=== PATIENT | female | born 1975 | race Caucasian/White ===

== ENCOUNTER 2020-07-03 15:58 | Emergency (ER) | payer BC, SELFPAY ==
[2020-07-03] VITALS (8 sets, daily range): BP systolic 104–133; BP diastolic 74–91; PULSE 69–97; RESP 12–26; TEMP 36.7; O2SAT 98–100
--- NOTE | ~2020-07-03 | XR_ITS ---
EXAMINATION: XR chest 1V portable DATE: 07/03/2020 16:31 INDICATION: Left chest pain. Dizziness. Nausea and vomiting. TECHNIQUE: A single frontal view of the chest was obtained. COMPARISON: CT abdomen and pelvis 05/20/2016 FINDINGS: The chest demonstrates clear lungs without pneumonia, pleural effusion, or pneumothorax. Th e heart size is normal. IMPRESSION: 1. No acute cardiopulmonary disease. Reviewed, dictated and finalized at location A. E LEVER OPERATOR
--- NOTE | 2020-07-03 16:04 | ECG_ITS ---
Measurements Intervals [place] Rate: 83 P: 41 NC: 156 QRS: 21 QRSD: 91 T: 81 QT: 337 QTc: 398 Interpretive Statements SINUS RHYTHM BORDERLINE ST-T WAVE ABNORMALITY- INFERIOR LEADS BORDERLINE ECG Electronically Signed On 07-03-2020 16:19:56 SETTER MACHINE by Gopi Huggins D.O.
[2020-07-03 16:24] LABS: Basophils Absolute Auto 0.1 K/mm3 (0.0-0.1); Basophils Percent Auto 0.3 % (0.2-1.2); Eosinophils Absolute Auto 0.2 K/mm3 (0-0.3); Hematocrit 40.7 % (37.0-47.0); Hemoglobin 14.2 g/dL (12.0-15.0); Immature Granulocyte Absolute 0.04 K/mm3 (0.00-0.031); Immature Granulocyte Percent A 0.3 % (0-0.5); Lymphocytes Absolute Auto 3.06 K/mm3 (0.9-3.2); Lymphocytes Percent Auto 20.4 % (18.3-44.2); Mean Corpuscular HGB Conc 34.9 g/dl (32-36); Mean Corpuscular Hemoglobin 31.1 pg (26-34); Mean Corpuscular Volume 89.1 fl (80-100); Mean Platelet Volume 10.5 fl (7.4-10.4); Monocytes Absolute Auto 0.6 K/mm3 (0.1-0.6); Monocytes Percent Auto 4.1 % (2.6-8.5); Neutrophils Absolute Auto 11.1 K/mm3 (1.3-6.7); Neutrophils Percent Auto 73.9 % (45.5-73.1); Platelet Count Result 290 k/mm3 (150-375); Red Blood Count 4.57 M/mm3 (4.2-5.4); Red Cell Distribution Width 11.7 % (11.5-14.5)
[2020-07-03 16:31] LABS: Alanine Aminotransferase 47 U/L (4-35); Albumin Level 4.4 g/dL (3.5-5.1); Alkaline Phosphatase 69 U/L (38-126); Anion Gap 7 mmol/L (8-16); Aspartate Amino Transferase 34 U/L (14-36); Bilirubin,Total 0.4 mg/dL (0.2-1.3); Blood Urea Nitrogen 12 mg/dL (7-17); Calcium 8.9 mg/dL (8.4-10.2); Carbon Dioxide 26 mmol/L (22-30); Chloride 105 mmol/L (98-107); Estimated CRCL calculation 106 ml/min; Estimated Glomerular Filt Rate > 60; Glucose 108 mg/dL (65-105); Lipase 54 U/L (23-300); Potassium 4.1 mmol/L (3.4-5.0); Sodium 138 mmol/L (137-145)
[2020-07-03 16:34] LABS: INR 0.9; Partial Thromboplastin Time 25.3 SECONDS (22.3-36.8); Prothrombin Time 13.2 Seconds (11.1-14.7)
[2020-07-03 16:43] LABS: NT Pro B Type Natriuretic Pept < 11 PG/ML (5-100); Troponin I < 0.012 ng/mL (0.000-0.034)
--- NOTE | 2020-07-03 16:44 | ED.CHESTPAIN ---
HPI - Chest Pain General Chief Complaint: Chest Pain Stated Complaint: cp Time Seen by Provider: 07/03/20 16:04 Source: patient, family, EMS, RN notes reviewed and other Mode of arrival: ambulatory Limitations: no limitations History of Present Illness HPI narrative: Patient is a 44-year-old female who presents to emergency department for evaluation of left-sided substernal chest pain began this morning around 730 subsided came back around 1:00 followed by multiple episodes of emesis patient went to urgent care was evaluated and referred to emergency department on arrival patient notes mild improvement with her nitroglycerin and aspirin given by EMS noting mild discomfort to the left chest with slight GI upset patient notes over the last couple of days she is felt foggy with mild left-sided chest pain 2 days ago that was self-limited and resolved Related Data Home Medications Medication Instructions Recorded Confirmed elderberry fruit [Elderberry] mg PO 07/03/20 metformin 500 mg PO DAILY 07/03/20 naltrexone 50 mg PO DAILY 07/03/20 paroxetine HCl 10 mg PO QAM 07/03/20 spironolactone 25 mg PO DAILY 07/03/20 Allergies Allergy/AdvReac Type Severity Reaction Status Date / Time No Known Allergies Allergy Unverified 05/20/16 15:15 Review of Systems Review of Systems: All systems reviewed & are unremarkable except as noted in HPI and below PMFSH Past Medical History Medical History (Updated 07/03/20 @ 19:32 by Julian Ornelas PA-C) Obesity Social History Social History (Updated 07/03/20 @ 16:45 by Julian Ornelas PA-C) Smoking status: Never smoker Gender identity (if verbalized by the patient): Female Exam Narrative: Exam Narrative: GENERAL: Well-appearing, well-nourished, and in no acute distress. HEAD: Normocephalic, atraumatic. EYES: PERRLA and EOMI. ENT: Nares clear, no rhinorrhea or epistaxis. Mucous membranes moist. CHEST: Clear to auscultation. No respiratory distress. No wheezes rales or rhonchi HEART: Regular rate and rhythm. No murmur heard. Normal peripheral pulses. ABDOMEN: Soft, mild discomfort in the upper quadrants of the abdomen, nondistended EXTREMITIES: Normal range of motion. No edema. SKIN: Warm, dry, no rash. NEURO: No focal deficits. Alert and oriented x3. PSYCH: Normal mood and affect. Course Course Emergency Course: Patient in the room in no distress with improvement with medications felt to be safe for discharge home with plan to follow-up with primary care will be sent on PPI Vital Signs Vital signs: Vital Signs Temperature 98.1 F 07/03/20 16:00 Pulse Rate 97 07/03/20 16:00 Respiratory Rate 26 H 07/03/20 16:00 Blood Pressure 133/88 07/03/20 16:00 Pulse Oximetry 99 07/03/20 16:00 Temperature 98.1 F 07/03/20 17:38 Pulse Rate 69 07/03/20 18:45 Respiratory Rate 17 07/03/20 18:45 Blood Pressure 104/74 07/03/20 18:45 Pulse Oximetry 99 07/03/20 18:45 MDM - Chest Pain MDM Narrative Medical decision making narrative: Patients EKGs and labs are without significant high risk changes. Cardiac risk factors were reviewed. Patient is felt likely to be low risk for ACS and reasonable for further risk stratification testing as an outpatient. Pain was not sudden or maximal in onset without tearing or ripping. quality. No other signs or symptoms to suggest aortic dissection. A low-risk Wells criteria is noted. PE is felt to be unlikely. No pneumonia or URI symptoms were seen on evaluation today. Patient is felt to be reasonable for continued evaluation as an outpatient. Lab Data Result diagrams: 07/03/20 16:12 07/03/20 16:12 Labs: Lab Results 07/03/20 07/03/20 07/03/20 Range/Units 16:12 16:12 16:12 WBC 15.0 H (4.5-10.0) K/mm3 RBC 4.57 (4.2-5.4) M/mm3 Hgb 14.2 (12.0-15.0) g/dL Hct 40.7 (37.0-47.0) % MCV 89.1 (80-100) fl MCH 31.1 (26-34) pg MCHC 34.9 (32-36) g/dl RDW 11.7
[2020-07-03 16:48] LABS: D Dimer 0.27 ug/mL (<0.48)
[2020-07-03] MEDS: PANTOPRAZOLE SODIUM IV 40 MG VIAL IV PUSH (17:07)
[2020-07-03] MEDS: MAG HYDROX/AL HYDROX/SIMETH 30 ML UDC PO (17:07)
[2020-07-03] MEDS: LIDOCAINE HCL 2% VISC SOLN 15 ML UDC 20 ML PO (17:07)
[2020-07-03] MEDS: SODIUM CHLORIDE 0.9% IV 1,000 ML 999 ML IV CONT (17:08)
[2020-07-03 17:47] LABS: Amphetamine Screen Urine Negative (Negative); Barbiturate Screen Urine Negative (Negative); Benzodiazepines Screen Urine Negative (Negative); Cannabinoid Screen Urine Negative (Negative); Cocaine Screen Urine Negative (Negative); Methadone Screen Urine Negative (Negative); Opiate Screen Urine Negative (Negative); Phencyclidine Screen Urine Negative (Negative)
[2020-07-03 17:54] LABS: Add Urine Microscopic? YES; Appearance Urine Clear (Clear); Bacteria Urine Trace /hpf; Bilirubin Urine Negative (Negative); Blood Urine Negative (Negative); Color Urine Yellow (Yellow); Glucose Urine UA Negative (Negative); Ketones Urine Negative (Negative); Leukocyte Esterase Ur Negative LEU/UL (Negative); Mucus Urine Rare /lpf; Nitrate Urine Negative (Negative); Protein Urine 1+ mg/dL (Negative); RBC Urine 0-2 /hpf (0-2); Specific Grav Ur 1.018 (1.001-1.035); Squamous Epithelial Cell Urine Occasional /hpf (Few); Urobilinogen Urine Negative mg/dL (<2.0); WBC Urine 0-3 /hpf
--- NOTE | 2020-07-03 19:10 | PC.NURSE ---
assuming car of pt at this time, received report from artur banks
[2020-07-03 19:24] LABS: Troponin I < 0.012 ng/mL (0.000-0.034)
== END 2020-07-03 19:46 | disposition home or self-care (01) ==
PROVIDERS: Emergency Medicine Emergency Medical Services; Emergency Provider Emergency Medicine
DX: R07.2 Precordial pain (principal); E66.9 Obesity, unspecified; Z68.39 Body mass index [BMI] 39.0-39.9, adult; R94.31 Abnormal electrocardiogram [ECG] [EKG]
CPT/HCPCS: 36415; 71045; 80053; 80307; 81001; 81025; 83690; 83880; 84484; 85025; 85380; 85610; 85730; 93005; 96365; 96375; 99284; A9270; C9113; J0131; J7030

== ENCOUNTER → 2021-03-22 16:59 | Outpatient (CLI) | payer BC, SELFPAY ==
--- NOTE | ~2021-03-22 | MM_ITS ---
EXAMINATION: MM screening suman BI w chhaya HISTORY: Screening mammogram; baseline examination TECHNIQUE: Craniocaudal and mediolateral oblique 3-D tomosynthesis images were obtained and synthetic 2-D images were generated. CAD analysis was submitted and interpreted. COMPARISON: No prior mammogram is available for comparison at this institution. BREAST PARENCHYMAL COMPOSITION: There are scattered areas of fibroglandular density. FINDINGS: There is no evidence of suspicious mass, calcification, or architectural distortion to sugg est malignancy in either breast. There has been no suspicious interval change. IMPRESSION: 1. No mammographic evidence of malignancy. 2. Recommend routine screening mammography in one year. BI-RADS Category 1: Negative Reviewed, dictated and finalized at location A.
== END ==
PROVIDERS: PCP Family Medicine; Visit Provider Nurse Practitioner Family
DX: Z12.31 Encounter for screening mammogram for malignant neoplasm of breast (principal)
CPT/HCPCS: 77063; 77067

== ENCOUNTER → 2021-06-24 14:20 | Outpatient (CLI) | payer BC, SELFPAY ==
[2021-06-24 17:33] LABS: SARS-CoV-2 RNA PCR Negative
== END ==
PROVIDERS: PCP Family Medicine; Visit Provider Nurse Practitioner Family
DX: R68.89 Other general symptoms and signs (principal); Z20.822 Contact with and (suspected) exposure to COVID-19
CPT/HCPCS: C9803; U0003; U0005

== ENCOUNTER 2021-11-02 12:41 | Emergency (ER) | payer BC, SELFPAY ==
[2021-11-02] VITALS (24 sets, daily range): BP systolic 104–129; BP diastolic 63–92; PULSE 82–90; RESP 16–18; TEMP 36.3–36.4; O2SAT 97–100
--- NOTE | ~2021-11-02 | CT_ITS ---
EXAMINATION: CT abdomen pelvis w con DATE: 11/02/2021 18:38 INDICATION: Right-sided abdominal pain TECHNIQUE: Computed tomography (CT) of the abdomen and pelvis was performed with 109 mL Omnipaque-350 intravenous contrast. Automated exposure control and iterative reconstruction technique were employe d. The dose-length product was 1142.36 mGy-cm. COMPARISON: 05/20/2016 FINDINGS: Lung bases are clear. Heart size is normal. No pericardial or pleural effusion. Liver, gallbladder, s pleen, pancreas, bilateral adrenal glands and kidneys are normal. Bowels including the appendix are n ormal. 3.6 cm right adnexal cyst. Anteverted uterus, left adnexa and partially decompressed bladder a re unremarkable. No free intraperitoneal gas or fluid. No pathologically enlarged abdominal or pelvic lymphadenopathy. Small fat-containing umbilical hernia. L5 spondylolysis with bilateral pars interar ticularis defects and 4 mm anterolisthesis on S1. IMPRESSION: 1. 3.6 cm right adnexal cyst. 2. Small fat-containing umbilical hernia. 3. L5 spondylolysis with 4 mm anterolisthesis on S1. Reviewed, dictated and finalized at location A. GAGE COORDINATOR
--- NOTE | ~2021-11-02 | US_ITS ---
EXAMINATION: US pelvic complete w TV DATE: 11/02/2021 20:48 INDICATION: Right adnexal mass TECHNIQUE: Multiple transabdominal and endovaginal sonographic images of the pelvis were obtained. COMPARISON: None. FINDINGS: The uterus measures 9.1 x 6.0 x 4.5 cm. The endometrial complex measures 3 mm in thickness. Uterine myometrium appears thickened with indistinct endometrial-myometrial junctional zone and is scattered small hyperechoic islands consistent with diffuse uterine adenomyosis. section scar at the a nterior lower uterine segment. The right ovary measures 4.5 x 3.0 x 3.0 cm. 4.1 x 2.7 x 3.1 cm anecho ic cyst in the right ovary with single thin linear internal septation. No thickened septations or nod ular soft tissue component to suggest neoplasm. The left ovary measures 2.5 x 2.0 x 1.7 cm. -Or full identified in both ovaries on color Doppler. There is no free fluid in the pelvis. IMPRESSION: 1. Diffuse uterine adenomyosis. 2. 4.1 cm right ovarian cyst with single thin internal septation. Reviewed, dictated and finalized at location A. OPERATOR
--- NOTE | 2021-11-02 17:27 | ED.NAVMDI ---
HPI - Nausea/Vomiting/Diarrhea General Chief complaint: Nausea/Vomiting/Diarrhea Stated complaint: nausea/vomiting/diarrhea Time Seen by Provider: 11/02/21 17:18 Source: patient Mode of arrival: ambulatory Limitations: no limitations History of Present Illness HPI Narrative: 45-year-old female presents today with complaints of nausea, vomiting, and diarrhea for the last 2 days. Patient took a home Covid test today and it was negative. Patient also noted right flank/right side pain that started yesterday. Patient unsure of fevers but does admit to chills and night sweats. 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 Patient denies dysuria, urinary frequency, but does admit to not being able to urinate. Patient states she has been able to keep some foods down today and fluids down today. Patient pain currently tolerable. Related Data Home Medications Medication Instructions Recorded Confirmed metformin 1,000 mg PO DIRECTED 07/03/20 07/19/21 naltrexone 50 mg PO DAILY 07/03/20 07/19/21 paroxetine HCl 10 mg PO QAM 07/03/20 07/19/21 spironolactone 25 mg PO DAILY 07/03/20 07/19/21 bupropion HCl 150 mg tablet,12 hr 150 mg PO BID 12/10/20 07/19/21 sustained-release sitagliptin 100 mg tablet 100 mg PO EVERY OTHER DAY 12/10/20 07/19/21 topiramate 25 mg tablet 25 mg PO BID 12/10/20 07/19/21 Vitamin D3 500 PO DAILY 11/02/21 semaglutide [Ozempic] 1 mg SUBCUT WEEKLY 11/02/21 Allergies Allergy/AdvReac Type Severity Reaction Status Date / Time codeine Allergy Mild upset Verified 11/02/21 17:31 stomach Review of Systems Review of Systems: CONSTITUTIONAL: Denies fever, chills, or sweats. EYES: Denies visual changes, redness, or discharge. ENT: Denies rhinorrhea, congestion, sore throat, or otalgia. CARDIOVASCULAR: Denies chest pain, palpitations, or edema. RESPIRATORY: Denies cough or dyspnea. GASTROINTESTINAL: Positive for flank pain right sided, nausea, vomiting, and diarrhea. GENITOURINARY: Denies dysuria or hematuria. SKIN: Denies rash or itching. MUSCULOSKELETAL: Denies back pain, joint pain, or myalgia. NEUROLOGIC: Denies headache, numbness, dizziness, or weakness. PSYCHIATRIC: Denies anxiety or depression. 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 Gender identity (if verbalized by the patient): Female Exam Narrative: GENERAL: Well-appearing, well-nourished, and in no acute distress. HEAD: Normocephalic, atraumatic. EYES: PERRLA and EOMI. ENT: Nares clear, no rhinorrhea or epistaxis. Mucous membranes moist. NECK: Supple. No adenopathy or masses. No carotid bruits or JVD CHEST: Clear to auscultation. No respiratory distress. No wheezes rales or rhonchi HEART: Regular rate and rhythm. No murmur heard. Normal peripheral pulses. ABDOMEN: Soft, nontender, nondistended, normal active bowel sounds. EXTREMITIES: Normal range of motion. No edema. SKIN: Warm, dry, no rash. NEURO: No focal deficits. Alert and oriented x3. PSYCH: Normal mood and affect. Course Course Emergency Course: All results reviewed with patient. Patient aware of ovarian cyst and is to follow up with OB. Patient in agreement with plan of care and is ready for discharge. Vital Signs Fern
[2021-11-02 17:54] LABS: Basophils Absolute Auto 0.1 K/mm3 (0.0-0.1); Basophils Percent Auto 0.6 % (0.2-1.2); Eosinophils Absolute Auto 0.2 K/mm3 (0-0.3); Eosinophils Percent Auto 2.1 % (0-4.4); Hematocrit 42.3 % (37.0-47.0); Hemoglobin 14.4 g/dL (12.0-15.0); Immature Granulocyte Absolute 0.05 K/mm3 (0.00-0.031); Immature Granulocyte Percent A 0.5 % (0-0.5); Lymphocytes Absolute Auto 3.35 K/mm3 (0.9-3.2); Mean Corpuscular Hemoglobin 31.2 pg (26-34); Mean Corpuscular Volume 91.6 fl (80-100); Mean Platelet Volume 10.8 fl (7.4-10.4); Monocytes Absolute Auto 0.6 K/mm3 (0.1-0.6); Monocytes Percent Auto 5.3 % (2.6-8.5); Neutrophils Absolute Auto 6.2 K/mm3 (1.3-6.7); Neutrophils Percent Auto 59.5 % (45.5-73.1); Platelet Count Result 330 k/mm3 (150-375); Red Blood Count 4.62 M/mm3 (4.2-5.4); Red Cell Distribution Width 11.8 % (11.5-14.5); White Blood Count 10.5 K/mm3 (4.5-10.0)
[2021-11-02 17:57] LABS: Add Urine Microscopic? YES; Appearance Urine Clear (Clear); Bilirubin Urine Negative (Negative); Blood Urine Negative (Negative); Color Urine Yellow (Yellow); Glucose Urine UA Negative (Negative); Ketones Urine Negative (Negative); Leukocyte Esterase Ur Negative LEU/UL (Negative); Mucus Urine Few /lpf; Nitrate Urine Negative (Negative); Protein Urine Negative (Negative); Specific Grav Ur 1.025 (1.001-1.035); Squamous Epithelial Cell Urine Rare /hpf (Few); Urobilinogen Urine Negative mg/dL (<2.0); WBC Urine 0-3 /hpf
[2021-11-02 18:05] LABS: Alanine Aminotransferase 27 U/L (4-35); Albumin Level 4.8 g/dL (3.5-5.1); Alkaline Phosphatase 75 U/L (38-126); Anion Gap 10 mmol/L (8-16); Aspartate Amino Transferase 26 U/L (14-36); Bilirubin,Total 0.4 mg/dL (0.2-1.3); Blood Urea Nitrogen 9 mg/dL (7-17); Calcium 8.8 mg/dL (8.4-10.2); Carbon Dioxide 27 mmol/L (22-30); Chloride 101 mmol/L (98-107); Estimated CRCL calculation 97 ml/min; Estimated Glomerular Filt Rate > 60; Glucose 95 mg/dL (65-110); Lipase 44 U/L (23-300); Potassium 3.5 mmol/L (3.4-5.0); Sodium 138 mmol/L (137-145)
[2021-11-02] MEDS: SODIUM CHLORIDE 0.9% IV 1,000 ML 999 ML IV CONT (18:16)
[2021-11-02] MEDS: ONDANSETRON INJ 4 MG/2 ML VIAL IV PUSH (18:16)
[2021-11-02] MEDS: fentaNYL CITRATE INJ (*CRX) 100 MCG/2 ML VIAL 50 MCG IV PUSH (20:55)
== END 2021-11-02 21:39 | disposition home or self-care (01) ==
PROVIDERS: Emergency Provider Nurse Practitioner Family; PCP Family Medicine
DX: N83.201 Unspecified ovarian cyst, right side (principal); E66.9 Obesity, unspecified; Z68.41 Body mass index [BMI] 40.0-44.9, adult; Z79.84 Long term (current) use of oral hypoglycemic drugs; M43.06 Spondylolysis, lumbar region; K42.9 Umbilical hernia without obstruction or gangrene; N80.0 Endometriosis of uterus
CPT/HCPCS: 36415; 74177; 76830; 76856; 80053; 81001; 81025; 83690; 85025; 96361; 96374; 96375; 99284; J2405; J3010; J7030; Q9967

== ENCOUNTER → 2022-02-19 08:28 | Outpatient (CLI) | payer BC, SELFPAY ==
--- NOTE | ~2022-02-19 | US_ITS ---
EXAMINATION: US transvaginal DATE: 02/19/2022 08:50 INDICATION: Ovarian cyst follow-up TECHNIQUE: Multiple endovaginal sonographic images of the pelvis were obtained. COMPARISON: 11/02/2021 FINDINGS: The uterus measures 8.5 x 4.5 x 5.5 cm. The endometrial complex measures 7 mm. The right ov brittayn measures 3.7 x 3.0 x 4.1 cm. There is a 3.1 x 2.3 x 2.9 cm cyst with septation in the right ovary . The left ovary measures 1.9 x 1.9 x 1.3 cm. There is normal vascular flow in the ovaries. There is no free fluid in the pelvis. IMPRESSION: 1. Right ovarian cyst with thin septation, decreased in size. Reviewed, dictated and finalized at location A.
== END ==
PROVIDERS: PCP Family Medicine; Visit Provider Obstetrics & Gynecology Gynecology
DX: N83.201 Unspecified ovarian cyst, right side (principal)
CPT/HCPCS: 76830

== ENCOUNTER → 2022-05-24 09:17 | Outpatient (CLI) | payer BC, SELFPAY ==
--- NOTE | ~2022-05-24 | XR_ITS ---
EXAMINATION: XR thoracic spine 2V DATE: 05/24/2022 09:28 INDICATION: Thoracic back pain TECHNIQUE: AP and lateral views of the thoracic spine are obtained. COMPARISON: None. FINDINGS: There is no fracture, dislocation, or subluxation. Vertebral body heights and alignment are normal. Small degenerative osteophytes project from the anterior endplates of multiple vertebral bod ies. There is mild loss of intervertebral disc space height in the midthoracic spine. IMPRESSION: 1. Mild thoracic spondylosis without acute findings. Reviewed, dictated and finalized at location A.
== END ==
PROVIDERS: PCP Family Medicine; Visit Provider Nurse Practitioner Family
DX: M47.814 Spondylosis without myelopathy or radiculopathy, thoracic region (principal)
CPT/HCPCS: 72070

== ENCOUNTER → 2022-10-10 08:49 | Outpatient (CLI) | payer BC, SELFPAY ==
--- NOTE | ~2022-10-10 | MMUS_ITS ---
EXAMINATION: MM diagnostic suman BI w chhaya, US breast RT limited HISTORY: Right breast lumps TECHNIQUE: Bilateral full field and right spot ML, MLO and CC 3-D tomosynthesis images were performed and synthetic 2-D images were generated. CAD analysis was submitted and interpreted. High resolution targeted right breast ultrasound examination at the areas of complaint of breast lump was performed. COMPARISON: 03/22/2021 bilateral screening mammogram FINDINGS: MAMMOGRAPHIC FINDINGS: No suspicious mass or architectural distortion, malignant calcification, skin thickening or retractio n or significant new or developing density is detected. ULTRASOUND: Targeted ultrasound imaging of right breast at 1:00 8 cm from the nipple and at 11:00 where the patie nt complains of breast lumps reveals no suspicious mass or shadowing, cyst or other significant sonog raphic abnormality. IMPRESSION: 1. No mammographic evidence of malignancy 2. Routine annual mammographic screening is recommended BI-RADS Category 1: Negative Reviewed, dictated and finalized at location A. ICAL DIETETIC TECHNICIAN IMPRESSION: 1. No mammographic evidence of malignancy 2. Routine annual mammographic screening is recommended BI-RADS Category 1: Negative
== END ==
PROVIDERS: PCP Family Medicine; Visit Provider Advanced Practice Midwife
DX: N63.10 Unspecified lump in the right breast, unspecified quadrant (principal)
CPT/HCPCS: 76642; 77062; 77066; G0279

== ENCOUNTER 2023-11-20 17:42 | Outpatient (CLI) | payer BC, SELFPAY ==
--- NOTE | ~2023-11-20 | XR_ITS ---
XR ankle LT min 3V 11/20/2023 17:56 Indication: Left ankle pain. Procedure: 4 views left ankle Comparison: No prior studies for comparison. Findings: No fracture, subluxation or dislocation. There is anatomic alignment. No significant degene rative change. No erosions. No focal soft tissue abnormality. No foreign bodies. Impression: 1: No significant bone or joint abnormality. Reviewed, dictated and finalized at location L. Impression: 1: No significant bone or joint abnormality.
== END 2023-11-20 17:43 | disposition home or self-care (01) ==
LOC: ANHIMG 17:44
PROVIDERS: PCP Family Medicine; Visit Provider Physician Assistant
DX: M25.572 Pain in left ankle and joints of left foot (principal)
CPT/HCPCS: 73610

== ENCOUNTER 2024-11-29 08:07 | Emergency (ER) | payer BC, SELFPAY ==
--- NOTE | 2024-11-29 08:10 | ED.URI ---
HPI - URI/Sore Throat General Chief Complaint: Upper Respiratory Infection Stated Complaint: Upper Respiratory Symptoms Time Seen by Provider: 11/29/24 08:34 Source: patient and RN notes reviewed Mode of arrival: ambulatory Limitations: no limitations History of Present Illness HPI Narrative: 49-year-old female presents concern for cough, chest congestion, sore throat, feeling feverish. Reports symptoms started on Monday. Reports she had fever, nausea and diarrhea when symptoms 1st started. She has been taking Mucinex DM. She works at a school. MD elicited complaint: cough and sore throat Related Data Allergies Allergy/AdvReac Type Severity Reaction Status Date / Time codeine Allergy Mild upset Verified 10/14/24 07:19 stomach Review of Systems Review of Systems: CONSTITUTIONAL: reports malaise. Denies chills, sweats, or fever. EYES: Denies visual changes, redness, or discharge. ENT: Reports rhinorrhea, congestion, and sore throat. CARDIOVASCULAR: Denies chest pain, palpitations, or edema. RESPIRATORY: Reports cough And chest congestion. Denies dyspnea. GASTROINTESTINAL: Denies abdominal pain, nausea, vomiting, diarrhea SKIN: Denies rash or itching. MUSCULOSKELETAL: Denies myalgia. NEUROLOGIC: Denies headache. All systems reviewed & are unremarkable except as noted in HPI and below PMFSH Past Medical History Medical History (Updated 11/29/24 @ 08:41 by Tonya Stubbs NP) Mood change Type 2 diabetes mellitus A1c 6.03 November 2023 @ diagnosis TMJ (temporomandibular joint disorder) Nasal congestion Tinnitus Anxiety Encounter to establish care Body mass index (BMI) of 40.1 to 44.9 in adult Obesity Surgical History Surgical History History of delivery x2 History of endometrial ablation Family History Family History Father Diabetes mellitus Heart disease Hypertension Mother CHF (congestive heart failure) Diabetes mellitus COPD (chronic obstructive pulmonary disease) Non-Hodgkin's lymphoma Sibling Bladder cancer Hypertension Grandparent Breast cancer Social History Social History Smoking status: Never smoker Second hand tobacco smoke exposure: No Alcohol intake: current Substance use: never Substance use type: does not use Do You Feel Safe in your Home?: Yes Lack of Transportation: No Lack of Food: Never True Current Housing: I Have Housing Concerned About Future Housing: No Difficulty Paying Gas/Electric Bills: No Difficulty Paying for Meds: No Currently Unemployed: No Education: Master's Degree or Higher Difficulty w/ Childcare or Family Care: No Living arrangements: with family Occupation/Education: occupation 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 Gender identity (if verbalized by the patient): Female Comments At time of signature, agree with nursing past medical, surgical, social and family history. There is no relevant family history pertinent to the presenting complaint Exam Narrative: GENERAL: Well-appearing, well-nourished, and in no acute distress. HEAD: Normocephalic EYES: PERRLA, conjunctivae clear ENT: Nares clear, turbinates edematous and erythematous, clear discharge. Mucous membranes moist. TM pearly hamm with dull light reflex bilaterally; no tragal tenderness. Oropharynx not erythematous without lesions. Tonsils not enlarged and without exudate, no drooling, no hoarseness, no trismus, uvula midline. NECK: Supple. No lymphadenopathy CHEST: Clear to auscultation, breath sounds equal. No wheezing, rhonchi, rales, or stridor. No respiratory distress, speaks in full sentences. HEART: Regular rate and rhythm. No murmur heard. SKIN: Warm, dry, no rash. NEURO: Alert and oriented x3. PSYCH: Normal mood and affect Course Course Emergency Course: Patient is aware of diagnosis, understands and agrees to treatment plan. Anticipatory guidance given. Patient agrees to follow-up as directed and is aware of reasons to seek care at the emergency department. Portions of this record may have been created with voice recognition software Level of Care: Express Care Visit Vital Signs Vital signs: Reviewed. MDM - URI/Sore Throat MDM Narrative Medical decision making narrative: Differential diagnosis considered: [place] virus, strep pharyngitis, allergic rhinitis, upper respiratory tract infection, sinusitis, rhinosinusitis, nasopharyngitis. viral pharyngitis, otitis media, otitis externa, pneumonia, bronchitis, viral cough syndrome, viral syndrome, and influenza. Exam findings show no acute concerns or changes; patient is non-toxic appearing and is in no distress. Patient is appropriate for outpatient treatment and follow-up. Lab Data Attestation: I reviewed the patient's lab results. Critical Care Time Critical Care Time Critical Care Time: No Discharge Plan Discharge Clinical Impression: Upper respiratory infection Patient Disposition: Home, Self-Care Condition: Stable Instructions: Upper Respiratory Infection (ED) Additional Instructions: Your rapid COVID and flu tests are negative Your rapid strep swab was negative today at [facility]. A throat culture will be sent to the laboratory for further testing. If the test is positive, you will receive a phone call within 48 hours and an appropriate antibiotic will be initiated at that time. Your symptoms are likely due to a viral illness, which is not treated with antibiotics. Viral symptoms can be present for up to a few weeks. -Alternate Tylenol and Motrin per package directions for fever or pain. -Antihistamine medication such as Benadryl at night and Zyrtec during the day can help improve symptoms. -Eat and drink things that are easy to swallow, like tea or soup, or popsicles to suck on. -Oral rinses such as: Salt water gargles and/or may use topical anesthetic (eg. Chloraseptic spray) or lozenges to relieve dryness or throat pain). -Frequent hand washing or hand refinish technician is one of the best ways to prevent spread of infection. -Follow up with primary care provider in 2-3 days if condition is not improving; or seek ER visit if you have trouble breathing, cannot drink enough fluids, have muffled voice, difficulty opening your mouth, or severe swelling. Patient Language: Bulgarian Prescriptions: New methylprednisolone [Medrol (Neftaly)] 4 mg tablets,dose pack See Rx Instructions .ROUTE .COMPLEX Qty: 21 0RF Rx Instructions: orally per package directions promethazine-DM 6.25-15 mg/5 mL syrup 5 ml PO Q4-6H PRN (Reason: cough) Qty: 120 0RF No Action metformin 500 mg tablet 500 mg PO ONCE Qty: 120 0RF spironolactone 25 mg tablet 50 mg PO DAILY Qty: 90 3RF paroxetine HCl 10 mg tablet 10 mg PO QAM Qty: 90 5RF naltrexone 50 mg tablet 50 mg PO DAILY Qty: 90 4RF bupropion HCl 300 mg tablet extended release 24 hr 300 mg PO QAM Qty: 90 5RF Mounjaro 2.5 mg/0.5 mL pen injector 2.5 mg subcut WEEKLY 28 Days Qty: 2 1RF Follow-up/Referrals: PHYSICIAN,RETAIL ASSISTANT STORE MANAGER [Primary Care Provider] - Stand Alone Forms: Work/School Release IP Time of Disposition: 08:43
[2024-11-29 08:16] VITALS: BP 118/76; PULSE 74; RESP 16; TEMP 36.3; O2SAT 99
[2024-11-29 08:37] LABS: EDCOVIDSCREEN Negative (Negative); EDINFLUASCREEN Negative (Negative); EDINFLUBSCREEN Negative (Negative); EDSTREPNEGPOS1 Negative (Negative)
== END 2024-11-29 08:49 | disposition home or self-care (01) ==
PROVIDERS: Emergency Provider Nurse Practitioner
DX: J06.9 Acute upper respiratory infection, unspecified (principal); Z20.822 Contact with and (suspected) exposure to COVID-19; E11.9 Type 2 diabetes mellitus without complications; Z79.84 Long term (current) use of oral hypoglycemic drugs; Z79.85 Long-term (current) use of injectable non-insulin antidiabetic drugs; E66.9 Obesity, unspecified
CPT/HCPCS: 87081; 87426; 87804; 87880; 99213; G0463